=== PATIENT | female | born 1990 | race Caucasian/White ===

== ENCOUNTER 2017-08-18 22:07 | Emergency (ER) | payer BC, OTHER ==
[2017-08-18 22:17] VITALS: BP 124/74; BMI 38.4
--- NOTE | 2017-08-18 23:41 | DR.GENAD ---
HPI - PCP Primary Care Physician: OLIVA - HPI Comment HPI Comment: SEE ORDERS - Complaint/Symptoms Chief Complaint Doctors Comments: ABSCESS AND CELLULITIS LT BUTTOCKS FOR 4 DAYS. Chief Complaint:: SORE ON LEFT BUTTOCKS Self Treatment fo Chief Complaint: BLACK SALVE - Nurses notes reviewed Nurses Notes Review: Yes - Source History Provided: Patient - Mode of Arrival Mode of Arrival: Ambulatory - Timing Onset of Chief Complaint: 08/15/17 Came on: Suddenly - Duration Duration: Constant Duration: Days - Severity Severity: Moderate PMH - PMH Past Medical History: Yes Past Medical History: Hypertension Past Surgical History: Yes Surgical History: Past Surgical History Comment: CSECTION X3, TL - Family History History of Family Medical Conditions: Yes Family Medical History: Diabetes Mellitus, Hypertension - Social History Does patient currently use any type of tobacco product: Yes Have you used tobacco products in the last 12 months: Yes Type of Tobacco Use: Cigarettes Does any household member use tobacco: No Alcohol Use: None Do you use any recreational Drugs:: No Lives With: Spouse Lives Where: Home - infectious screening In the last 2 months have you had wt loss of >10#?: NO Have you had fever, night sweats or hemotysis?: No Have you traveled outside the country in the last 6 months?: No Isolation: Standard ROS - Review of Systems Constitutional: No Symptoms Reported Eyes: No Symptoms Reported ENTM: No Symptoms Reported Respiratoy: No Symptoms Reported Cardiovascular: No Symptoms Reported Gastrointestinal/Abdominal: No Symptoms Reported Genitourinary: No Symptoms Reported Neurological: No Symptoms Reported Musculoskeletal: No Symptoms Reported Integumentary: Change in Color, Wound (RT BUTTOCKS ABSCESS AND CELLULITIS) Hematologic/Lymphatic: No Symptoms Reported Endocrine: No Symptoms Reported All Other Systems: Reviewed and Negative PE - Vital Signs Vitals: Temperature 98.4 F Pulse Rate 115 Respiratory Rate 18 Blood Pressure [Left Arm] 166/73 Blood Pressure [Right Arm] 128/69 Blood Pressure 124/74 O2 Sat by Pulse Oximetry 96 - General Limitations: No Limitations General Appearance: Alert - Head Head Exam: Normal Inspection - Eyes Eye exam: Normal Appearance - ENT ENT Exam: Normal External Ear Exam External Ear Exam: Normal External Inspection TM/Canal Exam: Bilateral Normal Nose Exam: Normal Nose Exam Mouth Exam: Normal Inspection Throat Exam: Normal Inspection - Neck Neck Exam: Normal Inspection - Chest Chest Inspection: Symmetric Chest Wall Rise - Respiratory Respiratory Exam: Normal Lung Sounds Bilat Respiratory Exam: Bilateral Clear to Auscultation - Cardiovascular Cardiovascular Exam: Regular Rate, Normal Rhythm, Normal Heart Sounds - Abdominal Exam Abdominal Exam: Normal Bowel Sounds, Soft, Distention - Extremities Extremities Exam: Normal Inspection - Back Back Exam: Normal Inspection - Neurologic Neurological Exam: Alert, Oriented X3 - Psychiatric Psychiatric Exam: Normal Affect, Normal Mood - Skin Skin Exam: Rash (RT BUTTOCKS CELLULITIS) MDM - Additional Information Additional Information Obtained From: Family - Differential Diagnosis Differential Diagnosis: ABSCESS, CELLULITIS Course - Treatment Treatment: SEE ORDERS. I&D DONE IN ED. SMALL PUS DRAIN. - Reevaluation 1st: Improved - Education/Counseling Education/Counseling: Patient, Family, Counseling Educated On: Treatment, Diagnosis, Needs for Follow Up ROR - Labs Reviewed Laboratory: 08/18/17 23:54 Buttock Gram Stain - Final - Diagnosis Discharge Problem: Abscess Cellulitis Qualifiers: Site of cellulitis: buttock Qualified Code(s): L03.317 - Cellulitis of buttock - Discharge Plan Disposition: 01 HOME, SELF-CARE Condition: Stable Prescriptions: Ibuprofen [MOTRIN TAB 800 MG *] 800 mg PO Q8H PRN #90 tab PRN Reason: Pain/Inflammation Sulfamethoxazole-Trimethoprim [BACTRIM DS TAB 800/160 MG *] 1 tab PO BID #20 tab Tramadol HCl 50 mg PO Q8H PRN #15 tablet PRN Reason: - Follow ups/Referrals Follow ups/Referrals: [facility],None [Primary Care Provider] - 2 days ELICEO MARTINEZ [STAFF PHYSICIAN] - 3 days - Instructions Instructions: Abscess, [id number], Cellulitis, Adult, [id number] Additional Instructions: RETURN TO ED IF WORSE.
[2017-08-18] MEDS ORDERED: ULTRAM PO ONE (23:51)
[2017-08-18] MEDS ORDERED: BACTRIM DS TAB PO ONE ×3 (23:51→23:56)
[2017-08-18] MEDS ORDERED: MOTRIN TAB 800 MG PO ONE ×2 (23:52→23:54)
[2017-08-18] MEDS ORDERED: ULTRAM ONE (23:55)
== END 2017-08-19 00:01 | disposition home or self-care (01) ==
LOC: ER 22:25
PROC: 0Y9130Z Drainage of Left Buttock with Drainage Device, Percutaneous Approach (ICD-10-PCS; principal; 2017-08-18)
DX: L02.31 Cutaneous abscess of buttock (principal); L03.317 Cellulitis of buttock
CPT/HCPCS: 10060; 87070; 87075; 87077; 87186; 87205; 99282; 99283